=== PATIENT | male | born 1970 | race Caucasian/White ===

== ENCOUNTER 2016-09-18 08:22 | Emergency (ER) | payer OTHER ==
[2016-09-18 08:41] VITALS: BP 135/89
--- NOTE | 2016-09-18 09:09 | EDM.PDOC ---
[id number] Complaint: RIGHT KNEE PAIN Time Seen by Provider: 09/18/16 08:50 Source of Information: Reports: Patient History Limitations: Reports: No Limitations - History of Present Illness INITIAL COMMENTS - FREE TEXT/NARRATIVE: 46-year-old male with a recurring right knee bursitis over the past several years has a current flareup. It has been painful since yesterday morning, he is in the emergency room with his who is a patient and it seems to be getting worse so he decided to get a check while he is here. No trauma, no significant redness or fever. He is currently on an antibiotic for "sinusitis". Onset: Gradual (Over the past 36 hours) Location: Reports: Lower Extremity, Right Severity: Mild Worsens with: Reports: Other (Palpation or direct pressure) Right Knee Pain Score (Numeric/FACES): 5 - Related Data Allergies Allergy/AdvReac Type Severity Reaction Status Date / Time No Known Allergies Allergy Verified 09/18/16 08:44 Home Meds: Home Meds Amoxicillin/Potassium Clav [Amox-Clav 875-125 mg Tablet] 1 tab PO BID 09/18/16 [ History] Metoprolol Tartrate [Lopressor] 50 mg PO DAILY 09/18/16 [History] Simvastatin [Zocor] 20 mg PO DAILY 09/18/16 [History] Past Medical History HEENT History: Reports: Impaired Vision Cardiovascular History: Reports: High Cholesterol, Hypertension Other Neuro History: Episode of dizziness aprox 3 years ago. - Infectious Disease History Infectious Disease History: Reports: Chicken Pox Social & Family History - Tobacco Use Smoking Status *Q: Never Smoker Years of Tobacco use: 25 Used Tobacco, but Quit: Yes Month Tobacco Last Used: September Second Hand Smoke Exposure: No - Caffeine Use Caffeine Use: Reports: Coffee, Soda, Tea - Alcohol Use Days Per Week of Alcohol Use: 0 - Recreational Drug Use Recreational Drug Use: No Review of Systems - Review of Systems Review Of Systems: See Below Constitutional: Denies: Fever Respiratory: Reports: No Symptoms Cardiovascular: Reports: No Symptoms GI/Abdominal: Reports: No Symptoms Skin: Reports: Other (Feels warm over the anterior right knee, no significant erythema) ED EXAM, GENERAL - Physical Exam Exam: See Below Exam Limited By: No Limitations General Appearance: Alert, No Apparent Distress Respiratory/Chest: No Respiratory Distress Cardiovascular: Regular Rate, Rhythm Extremities: Other (Exam is otherwise limited to the lower extremities. He does have tenderness to palpation over the patella on the right knee, it does feel slightly warm compared to the left but there is no effusion and no tenderness with stressing the medial or lateral collateral ligament) Course - Vital Signs Last Recorded V/S: Last Vital Signs Temp 95.3 F L 09/18/16 08:53 Pulse 76 09/18/16 08:53 Resp 14 09/18/16 08:53 BP 135/89 09/18/16 08:53 Pulse Ox 96 09/18/16 08:53 - Re-Assessments/Exams Free Text/Narrative Re-Assessment/Exam: 09/18/16 09:07 This patient has a localized patellar bursitis. Four-inch Dar wrap was applied to the knee, he responded well to naproxen according to the past emergency room visits and so was given a prescription for 500 mg #30, he is already on an antibiotic, I don't feel his knee is infected anyway. He can return if worsening. Departure - Departure Time of Disposition: 09:29 Disposition: Home, Self-Care 01 Condition: good Clinical Impression: Patellar bursitis of right knee - Discharge Information Instructions: Bursitis, [id number] Referrals: Louis Infante MD [Primary Care Provider] - Forms: ED Department Discharge Care Plan Goals: Rapid knee for comfort, knee pads to avoid direct injury and recheck next week if not improving satisfactorily. Return sooner if worsening such as fever increased redness or swelling.
== END 2016-09-18 09:29 | disposition home or self-care (01) ==
LOC: JP.ED 08:22
DX: M70.51 Other bursitis of knee, right knee (principal); I10 Essential (primary) hypertension; E78.00 Pure hypercholesterolemia, unspecified; Z87.891 Personal history of nicotine dependence; Z79.899 Other long term (current) drug therapy
CPT/HCPCS: 99283

== ENCOUNTER 2017-02-02 00:09 | Emergency (ER) | payer OTHER ==
[2017-02-02 00:28] VITALS: BP 127/78
[2017-02-02] MEDS ORDERED: Cyclobenzaprine 10 MG Tab PO ONE (00:53)
[2017-02-02] MEDS ORDERED: Ketorolac 60 MG/2 ML SDV IM ONE (00:53)
--- NOTE | 2017-02-02 00:55 | EDM.PDOC ---
ED HPI GENERAL MEDICAL PROBLEM - General Chief Complaint: Back Pain or Injury Stated Complaint: LOW BACK PAIN Time Seen by Provider: 02/02/17 00:50 Source of Information: Reports: Patient, Family, RN Notes Reviewed History Limitations: Reports: No Limitations - History of Present Illness INITIAL COMMENTS - FREE TEXT/NARRATIVE: 46-year-old gentleman presents emergency department today complaint of low back pain predominately on the left side, he states he has been doing some lifting which may have exacerbated the pain denies any loss of bowel or bladder does have pain shooting into his left leg no fevers Lower Back Pain Score (Numeric/FACES): 9 - Related Data Allergies Allergy/AdvReac Type Severity Reaction Status Date / Time No Known Allergies Allergy Verified 02/02/17 00:31 Home Meds: Home Meds Metoprolol Tartrate [Lopressor] 50 mg PO DAILY 09/18/16 [History] Simvastatin [Zocor] 20 mg PO DAILY 09/18/16 [History] amLODIPine [Norvasc] 10 mg PO DAILY 02/02/17 [History] Past Medical History HEENT History: Reports: Impaired Vision Cardiovascular History: Reports: High Cholesterol, Hypertension Musculoskeletal History: Reports: Back Pain, Chronic Other Neuro History: Episode of dizziness aprox 3 years ago. - Infectious Disease History Infectious Disease History: Reports: Chicken Pox Social & Family History - Tobacco Use Smoking Status *Q: Never Smoker Years of Tobacco use: 25 Used Tobacco, but Quit: Yes Month Tobacco Last Used: September Second Hand Smoke Exposure: No - Caffeine Use Caffeine Use: Reports: Coffee, Soda, Tea - Alcohol Use Days Per Week of Alcohol Use: 0 - Recreational Drug Use Recreational Drug Use: No ED ROS GENERAL - Review of Systems Review Of Systems: See Below Constitutional: Reports: No Symptoms HEENT: Reports: No Symptoms Respiratory: Reports: No Symptoms Cardiovascular: Reports: No Symptoms GI/Abdominal: Reports: No Symptoms : Reports: No Symptoms Musculoskeletal: Reports: Back Pain Neurological: Reports: No Symptoms ED EXAM,LOWER BACK PAIN/INJURY - Physical Exam Exam: See Below Exam Limited By: No Limitations General Appearance: Alert, Mild Distress Respiratory/Chest: No Respiratory Distress Back Exam: Normal Inspection, Decreased Range of Motion, Muscle Spasm, Paraspinal Tenderness. No: CVA Tenderness (R), CVA Tenderness (L), Vertebral Tenderness Extremities: Other (Straight leg test negative) DTR - Lower Extremities: 2+: Knee (R), Knee (L) Course - Vital Signs Last Recorded V/S: Last Vital Signs Temp 98.2 F 02/02/17 00:24 Pulse 83 02/02/17 00:24 Resp 16 02/02/17 00:24 BP 127/78 02/02/17 00:24 Pulse Ox 91 L 02/02/17 00:24 - Orders/Labs/Meds Meds: Medications Discontinued Medications Generic Name Dose Route Start Last Admin Trade Name Christine PRN Reason Stop Dose Admin Cyclobenzaprine HCl 10 mg 02/02/17 00:53 02/02/17 01:02 Flexeril PO 02/02/17 00:54 10 mg ONETIME ONE Administration Hydromorphone HCl 1 mg 02/02/17 01:25 02/02/17 01:29 Dilaudid IM 02/02/17 01:26 1 mg ONETIME ONE Administration Hydromorphone HCl 1 mg 02/02/17 02:47 02/02/17 03:02 Dilaudid IM 02/02/17 02:48 1 mg ONETIME ONE Administration Ketorolac Tromethamine 60 mg 02/02/17 00:53 02/02/17 01:02 Toradol IM 02/02/17 00:54 60 mg ONETIME ONE Administration Departure - Departure Time of Disposition: 04:03 Disposition: Home, Self-Care 01 Condition: Good Clinical Impression: Low back pain Qualifiers: Chronicity: acute Back pain laterality: left Sciatica presence: without sciatica Qualified Code(s): M54.5 - Low back pain - Discharge Information Referrals: Louis Infante MD [Primary Care Provider] - Forms: ED Department Discharge - Assessment/Plan Plan: Assessment Acuity = acute Site and laterality = low back pain Etiology = secondary to lifting injury Manifestations = none Location of injury = Home Lab values = none Plan He had some improvement with combination Dilaudid, Flexeril and Toradol as well as for several be discharged home with hydrocodone 5/325 one tab by mouth 3 times a day when necessary total #10 plan to follow-up with primary care in 3-5 days for reevaluation Patient was in agreement with the plan all questions were answered, they were instructed to return to the emergency department or call for worsening symptoms. This note was dictated using dragon voice recognition software please call with any questions.
[2017-02-02] MEDS ORDERED: HYDROmorphone 1 MG/ML Syringe IM ONE ×2 (01:25→02:47)
== END 2017-02-02 04:20 | disposition home or self-care (01) ==
LOC: JP.ED 00:09
DX: M54.5 Low back pain (principal); E78.00 Pure hypercholesterolemia, unspecified; I10 Essential (primary) hypertension; Z79.899 Other long term (current) drug therapy
CPT/HCPCS: 96372; 99283; A9270; J1170; J1885

== ENCOUNTER 2017-12-07 20:01 | Emergency (ER) | payer OTHER ==
[2017-12-07] MEDS ORDERED: Furosemide 20 MG Tab PO ONE (21:25)
[2017-12-07] MEDS ORDERED: amLODIPine 5 MG Tab PO ONE (21:26)
[2017-12-07] MEDS ORDERED: Acetaminophen 500 MG Tab PO ONE (21:27)
--- NOTE | 2017-12-07 21:27 | EDM.PDOC ---
ED HPI GENERAL MEDICAL PROBLEM - General Chief Complaint: Cardiovascular Problem Stated Complaint: BLOOD PRESSURE ISSUES Time Seen by Provider: 12/07/17 21:19 Source of Information: Reports: Patient History Limitations: Reports: No Limitations - History of Present Illness INITIAL COMMENTS - FREE TEXT/NARRATIVE: 47 yo male presents to ER with head pressure, and elevated blood pressure. Pt had normal work day and after he came home mild dizziness. ate normal supper. pt sees his PCP 1 time per year in the spring and blood pressure has been stable. mild increase in LE edema. - Related Data Allergies Allergy/AdvReac Type Severity Reaction Status Date / Time No Known Allergies Allergy Verified 02/02/17 00:31 Home Meds: Home Meds Metoprolol Tartrate [Lopressor] 50 mg PO DAILY 09/18/16 [History] Simvastatin [Zocor] 20 mg PO DAILY 09/18/16 [History] amLODIPine [Norvasc] 10 mg PO DAILY 02/02/17 [History] Pregabalin [Lyrica] 100 mg PO DAILY 12/07/17 [History] Past Medical History HEENT History: Reports: Impaired Vision Cardiovascular History: Reports: High Cholesterol, Hypertension Musculoskeletal History: Reports: Back Pain, Chronic Other Neuro History: Episode of dizziness aprox 3 years ago. - Infectious Disease History Infectious Disease History: Reports: Chicken Pox - Past Surgical History Musculoskeletal Surgical History: Reports: Other (See Below) Other Musculoskeletal Surgeries/Procedures:: back surgery 07/2017 Social & Family History - Tobacco Use Smoking Status *Q: Never Smoker Second Hand Smoke Exposure: No - Caffeine Use Caffeine Use: Reports: Coffee - Recreational Drug Use Recreational Drug Use: No ED ROS GENERAL - Review of Systems Review Of Systems: See Below Constitutional: Denies: Fever, Chills, Fatigue Respiratory: Denies: Shortness of Breath, Wheezing Cardiovascular: Reports: Lightheadedness. Denies: Chest Pain, Syncope GI/Abdominal: Denies: Abdominal Pain, Constipation, Diarrhea Skin: Denies: Rash Neurological: Reports: Dizziness, Headache. Denies: Confusion ED EXAM, GENERAL - Physical Exam Exam: See Below Exam Limited By: No Limitations General Appearance: Alert, WD/WN, No Apparent Distress Head: Atraumatic, Normocephalic Neck: Normal Inspection, Supple, Non-Tender, Full Range of Motion. No: Lymphadenopathy (R), Lymphadenopathy (L) Respiratory/Chest: No Respiratory Distress, Lungs Clear, Normal Breath Sounds. No: Crackles, Rhonchi, Wheezing Cardiovascular: Regular Rate, Rhythm, No Murmur, Other (1+pitting edema LE) GI/Abdominal: Normal Bowel Sounds, Soft, Non-Tender. No: Tender Neurological: Alert, Oriented, CN II-XII Intact, Normal Cognition, Normal Gait Psychiatric: Normal Affect, Normal Mood Skin Exam: Warm, Dry, Intact. No: Rash Course - Vital Signs Last Recorded V/S: Last Vital Signs Temp 35.8 C 12/07/17 20:41 Pulse 79 12/07/17 22:32 Resp 16 12/07/17 22:32 BP 138/97 H 12/07/17 22:32 Pulse Ox 97 12/07/17 22:32 - Orders/Labs/Meds Orders: Active Orders 24 hr Category Date Time Status Sodium Chloride 0.9% [Normal Saline] 1,000 ml Med 12/07/17 22:15 Active IV ASDIRECTED Medication Orders Sodium Chloride (Normal Saline) 1,000 mls @ 999 mls/hr IV ASDIRECTED ULISSES Labs: Laboratory Tests 12/07/17 12/07/17 Range/Units 21:35 21:35 WBC 6.7 (4.5-11.0) K/uL RBC 5.02 (4.30-5.90) M/uL Hgb 15.2 H (12.0-15.0) g/dL Hct 44.8 (40.0-54.0) % MCV 89 (80-98) fL MCH 30 (27-31) pg MCHC 34 (32-36) % Plt Count 193 (150-400) K/uL Neut % (Auto) 61 (36-66) % Lymph % (Auto) 28 (24-44) % Sabine % (Auto) 9 H (2-6) % Eos % (Auto) 2 (2-4) % Baso % (Auto) 0 (0-1) % Sodium 139 L (140-148) mmol/L Potassium 4.5 (3.6-5.2) mmol/L Chloride 105 (100-108) mmol/L Carbon Dioxide 29 (21-32) mmol/L Anion Gap 9.5 (5.0-14.0) mmol/L BUN 17 (7-18) mg/dL Creatinine 1.4 H D (0.8-1.3) mg/dL Est Cr Clr Drug Dosing 66.63 mL/min Estimated GFR (MDRD) 54 L (>60) Glucose 110 H (74-106) mg/dL Calcium 8.7 (8.5-10.1) mg/dL Meds: Medications Generic Name Dose Route Start Last Admin Trade Name Christine PRN Reason Stop Dose Admin Sodium Chloride 1,000 mls @ 999 mls/hr 12/07/17 22:15 Normal Saline IV ASDIRECTED ULISSES Discontinued Medications Generic Name Dose Route Start Last Admin Trade Name Christine PRN Reason Stop Dose Admin Acetaminophen 1,000 mg 12/07/17 21:27 12/07/17 21:39 Tylenol Extra Strength PO 12/07/17 21:28 1,000 mg ONETIME ONE Administration Amlodipine Besylate 5 mg 12/07/17 21:26 12/07/17 21:39 Norvasc PO 12/07/17 21:27 5 mg ONETIME ONE Administration Furosemide 20 mg 12/07/17 21:25 12/07/17 21:39 Lasix PO 12/07/17 21:26 20 mg ONETIME ONE Administration - Re-Assessments/Exams Free Text/Narrative Re-Assessment/Exam: 12/07/17 22:33 feeling better after fluids. Lasix diaphoresised 400 ML. will have follow-up with PCP end of the week. Will increase metoprolol to 100 mg Departure - Departure Time of Disposition: 22:37 Disposition: Home, Self-Care 01 Condition: Good Clinical Impression: HTN (hypertension) Qualifiers: Hypertension type: essential hypertension Qualified Code(s): I10 - Essential ( primary) hypertension Instructions: Hypertension, [id number] Referrals: Louis Infante MD [Primary Care Provider] - Forms: ED Department Discharge Additional Instructions: increase your metoprolol to 100 mg daily increase fluid intake to 1.5-2 L per day follow-up with primary care provider by end of the week Your kidney function was decreased tonight your creatine was 1.4 and your GFR was 54 - My Orders Last 24 Hours: My Active Orders 12/07/17 22:15 Sodium Chloride 0.9% [Normal Saline] 1,000 ml IV ASDIRECTED - Assessment/Plan Last 24 Hours: My Active Orders 12/07/17 22:15 Sodium Chloride 0.9% [Normal Saline] 1,000 ml IV ASDIRECTED
[2017-12-07] MEDS ORDERED: Sodium Chloride 0.9% 1,000 ML IV SCH (22:15)
[2017-12-07 23:34] VITALS: BP 144/98
== END 2017-12-07 23:35 | disposition home or self-care (01) ==
LOC: JP.ED 20:01
DX: I10 Essential (primary) hypertension (principal); Z79.899 Other long term (current) drug therapy
CPT/HCPCS: 36415; 80048; 85025; 96360; 99284; A9270; J7030

== ENCOUNTER 2020-04-27 06:27 | Day surgery (SDC) | payer OTHER ==
[2020-04-27] MEDS ORDERED: Sodium Chloride 0.9% 1,000 ML IV SCH (07:00)
[2020-04-27] MEDS ORDERED: fentaNYL 100 MCG/2 ML SDV ONE (07:40)
[2020-04-27] MEDS ORDERED: Midazolam 1 MG/ML 2 ML SDV ONE (07:40)
[2020-04-27] MEDS ORDERED: Propofol 200 MG/20 ML SDV ONE (07:40)
[2020-04-27 09:04] VITALS: BP 115/71; PULSE 79
[2020-04-27] MEDS ORDERED: Ibuprofen 600 MG Tab PO ONE (09:15)
--- NOTE | 2020-04-27 09:25 | OR ---
DATE OF PROCEDURE: 04/27/2020 SURGEON: Huan Ch MD PROCEDURE: Colonoscopy. FINDINGS: Normal colonoscopy. PREOPERATIVE DIAGNOSIS: Screening colonoscopy. POSTOPERATIVE DIAGNOSIS: Screening colonoscopy. RISKS: Risks, benefits, alternatives, and limitations including, but not limited to infection, bleeding, and perforation were explained to the patient along false-positive and false-negative. The patient understands these risks and wishes to proceed. PROCEDURE IN DETAIL: The patient was placed in left lateral decubitus position. Digital rectal exam was performed without abnormality. The scope was introduced and advanced atraumatically to the ileocecal valve. A photo was taken. The scope was brought back to the ascending, transverse, descending colon, and retroflexed. No evidence of old or new blood. No masses. No polyps. No colitis. No abnormalities on retroflexion. Prep was marginal. Approximately 90% luminal surface could be seen, but still some retained solid and liquid stool. The patient tolerated the procedure well. Greater than 8 minutes was spent on removing the scope. Huan Ch MD /[id number]
== END 2020-04-27 09:06 | disposition home or self-care (01) ==
LOC: JP.SDS 06:27
PROVIDERS: ATTEND Surgery
DX: Z12.11 Encounter for screening for malignant neoplasm of colon (principal); G47.33 Obstructive sleep apnea (adult) (pediatric); I10 Essential (primary) hypertension
CPT/HCPCS: 45378; A9270; J2250; J2704; J3010; J7030

== ENCOUNTER 2021-08-06 14:11 | Emergency (ER) | payer OTHER ==
[2021-08-06] MEDS ORDERED: Meclizine 25 MG Tab PO ONE (14:42)
[2021-08-06 15:57] VITALS: BP 126/83; PULSE 78
== END 2021-08-06 16:30 | disposition home or self-care (01) ==
LOC: JP.ED 14:11
DX: R42 Dizziness and giddiness (principal); E78.00 Pure hypercholesterolemia, unspecified; I10 Essential (primary) hypertension; Z79.899 Other long term (current) drug therapy; Z87.891 Personal history of nicotine dependence
CPT/HCPCS: 36415; 80048; 84484; 85025; 99282; 99284; A9270-GY

== ENCOUNTER 2022-06-22 12:22 | Emergency (ER) | payer OTHER ==
[2022-06-22 12:31] VITALS: BP 148/93; PULSE 83
[2022-06-22] MEDS ORDERED: Meclizine 25 MG Tab PO ONE (14:16)
== END 2022-06-22 14:30 | disposition home or self-care (01) ==
LOC: JP.ED 12:22
DX: H83.01 Labyrinthitis, right ear (principal); I10 Essential (primary) hypertension; E78.00 Pure hypercholesterolemia, unspecified; K21.9 Gastro-esophageal reflux disease without esophagitis; Z79.899 Other long term (current) drug therapy; Z86.16 Personal history of COVID-19; Z87.891 Personal history of nicotine dependence
CPT/HCPCS: 36415; 80048; 84443; 85025; 93005; 99284; A9270; 93010; 99283